=== PATIENT | male | born 1960 | race Caucasian/White ===

== ENCOUNTER 2017-11-10 15:54 | Emergency (ER) | payer OTHER ==
[~2017-11-10 15:54] MED LIST: ASPIR 8181 MG PO; ATORVASTATIN CA20 MG PO; CENTRUM SILVER1 TA1 PO; COENZYME Q-10100 M1 PO; INVOKANA100 MG PO; LANTUS SOLOS100 U/ML SC; LEVOTHYROXINE0.1 M1 PO; METFORMIN HCL500 MG PO; OMEPRAZOLE D/R20 MG PO; PERCOCET 5-3251 EACH PO; SUPER EPA 2002000 MG PO; VICTOZA6 MG/ML SC; ZANTAC 150MG150 MG PO; ZYRTEC ALLERGY10 MG PO
[2017-11-10 16:01] VITALS: BP 122/79
--- NOTE | 2017-11-10 16:08 | ED ANIMAL BITE/WOUND CHECK ---
History of Present Illness General Chief Complaint: Suture Removal/Wound Recheck Stated Complaint: SUTURE REMOVAL R INDEX FINGER Source: patient Exam Limitations: no limitations Vital Signs & Intake/Output Vital Signs & Intake/Output Vital Signs Date Time Temp Pulse Resp B/P B/P Pulse O2 O2 Flow FiO2 Mean Ox Delivery Rate 11/10 1601 98.0 22 122/79 98 Allergies Coded Allergies: MDX - LAMONTE Inhibitor (LAMONTE INHIBITOR) (RASH 12/08/14) MDX - Glipizide (GLIPIZIDE) (RASH 12/08/14) MDX - Ibuprofen (IBUPROFEN) (RASH 12/08/14) MDX - Penicillin (PENICILLIN) (RASH 12/08/14) MDX - Pioglitazone (From ACTOS) (RASH 12/08/14) Reconcile Medications Aspirin (Ecotrin) 81 MG TABLET.DR 1 TAB PO DAILY HEART HEALTH (Reported) Atorvastatin Calcium (Lipitor) 20 MG TABLET 1 TAB PO DAILY CHOLESTEROL ( Reported) Canagliflozin (Invokana) 100 MG TABLET 1 TAB PO DAILY DIABETES (Reported) CETIRIZINE HCL (Zyrtec) 10 MG CAPSULE 1 CAP PO DAILY ALLERGIES (Reported) Fish Oil (Super Epa 2000) 2,000 MG SGL 1 SGL PO DAILY SUPPLEMENT (Reported) Insulin Glargine, Recombinan (Lantus Solostar) 100 U/ML THI 40 UNIT SC DAILY DIABETES (Reported) Levothyroxine Sodium 0.1 MG TAB 1 TAB PO DAILY AC THYROID (Reported) Liraglutide (Victoza 3-Ryan) 0.6 MG/0.1 ML (18 MG/3 ML) PEN.INJCTR 1.8 mg SC DAILY DIABETES (Reported) Metformin Hydrochloride (Metformin HCl) 500 MG TAB 2 TAB PO BID DIABETES ( Reported) Multivitamin, Minerals, and (Centrum Silver) 1 TAB TAB 1 TAB PO DAILY SUPPLEMENT (Reported) Omeprazole 20 MG CAPSULE.DR 1 CAP PO DAILY GI (Reported) Oxycodone HCl/Acetaminophen (Percocet 5-325 MG Tablet) 1 EACH TABLET 1 TAB PO Q6HR PRN pain Ranitidine (Zantac) 150 MG TABLET 1 TAB PO DAILY GI (Reported) UBIDECARENONE (Coenzyme Q-10) (Unknown Strength) CAPSULE (Unknown Dose) PO DAILY SUPPLEMENT (Reported) Triage Note: PT HERE FOR SUTURES TO BE REMOVED PLACED SUNDAY UTD WITH TETANUS. RT INDEX FINGER 3 SUTURES SUTURE LINE CLEAN AND DRY Triage Nurses Notes Reviewed? yes Onset: Abrupt Duration: week(s): (1), better Timing: single episode today Injury Environment: home Is Injury an Animal Bite? No Severity: mild, moderate No Modifying Factors: none HPI: 57-year-old male past medical history diabetes presents for evaluation of suture removal. Patient had sutures placed 6 days ago index finger after he accidentally cut it with a knife. He is to keep the area clean and dry change dressing once daily. He denies any pain numbness discharge redness or fever. (Curtis Barrientos) Past History Travel History Traveled to [place] past 21 day No Medical History Any Pertinent Medical History? see below for history Neurological: TIA, neuralgia migraines Cardiovascular: hypertension, hyperlipidemia, HEART DISEASE Renal: EPISODIC ANGIOEDEMA Endocrine: diabetes, hypothyroidism Surgical History Surgical History: non-contributory Psychosocial History What is your primary language Maltese Tobacco Use: Never used Family History Hx Contributory? No (Curtis Barrientos) Review of Systems Review of Systems Constitutional: Reports: no symptoms. EENTM: Reports: no symptoms. Respiratory: Reports: no symptoms. Cardiovascular: Reports: no symptoms. GI: Reports: no symptoms. Genitourinary: Reports: no symptoms. Musculoskeletal: Reports: no symptoms. Skin: Reports: see HPI. Neurological/Psychological: Reports: no symptoms. Hematologic/Endocrine: Reports: no symptoms. Immunologic/Allergic: Reports: no symptoms. All Other Systems: Reviewed and Negative (Curtis Barrientos) Physical Exam Physical Exam General Appearance: well developed/nourished, no apparent distress, alert, awake Head: atraumatic, normal appearance Eyes: Bilateral: normal appearance, EOMI. Ears, Nose, Throat: hearing grossly normal Neck: normal inspection, supple, full range of motion Respiratory: no respiratory distress Back: normal inspection, normal range of motion Extremities: RT INDEX FINGER: 1CM LACERATION REPAIED WITH 3 SUTURES ON THE DORSUM OF THE FINGER. SUTURES ARE CLEAN AND DRY AND INTACT. nO ERYTHEMA AND NO DISCHARGE. fULL RANGE OF MOTION OF THE FINGER IS INTACT. nEUROVASCULAR SUPPLY INTACT. Neurologic/Psych: no motor/sensory deficits, awake, alert, oriented x 3, normal gait Skin: intact, normal color, warm/dry (Curtis Barrientos) Progress Differential Diagnosis: abscess, cellulitis, joint infection, tenosysnovitis Plan of Care: Laceration is healing well. Sutures clean dry and intact. No signs of infection. Sutures removed without difficulty. Sterile dressing applied. Keep area clean and dry. For signs of infection. Discussed return precautions return with any concerns. (Curtis Barrientos) Departure Departure Disposition: HOME OR SELF CARE Condition: Stable Clinical Impression Primary Impression: Visit for suture removal Referrals: Wan ALAS,Brandyn Salmon (PCP/Family) Additional Instructions: Keep the area clean and dry. Change dressing daily. [place] for signs of infection like redness on discharge or pain. Follow-up with your primary care doctor for recheck. Monitor symptoms and return with any concerns. Departure Forms: Customer Survey General Discharge Information (Curtis Barrientos) PA/[employer] [employer] Co-Sign Statement Statement: ED Attending supervision documentation- I saw and evaluated the patient. I have also reviewed all the pertinent lab results and diagnostic results. I agree with the findings and the plan of care as documented in the PA's/MUFFLER HAND's documentation. x I have reviewed the ED Record and agree with the PA's/MUFF[employer] HAND's documentation. [] Additions or exceptions (if any) to the PAs/MUFFLER HAND's note and plan are summarized below: [] (Amrit ALAS,Feliciano)
== END 2017-11-10 16:09 ==
LOC: ERH 15:54
DX: Z48.02 Encounter for removal of sutures (principal)